=== PATIENT | male | born 1945 | race Two or more races ===

== ENCOUNTER 2017-03-11 06:38 | Inpatient (IN) | payer MEDICARE, BC ==
[~2017-03-11] VITALS: Ht 167.6 cm; Wt 65.8 kg
[2017-03-11] MEDS ORDERED: fentaNYL PF VIAL 100 MCG/2 ML VIAL IV PRN ×2 (07:15→08:45)
--- NOTE | 2017-03-11 07:15 | ED.ADGEN ---
Adult General Chief Complaint Chief Complaint: PAIN ON URINATION HPI HPI Patient is a 71 year old man, with a history of type 2 diabetes mellitus, hypertension, hyperlipidemia, CAD status post CABG, who presents to the emergency department with a complaint of back pain, abdominal pain, fever, difficulty with urination and hematuria along with discharge and drainage over the past 3 days. Patient states that he first noted pain with urination and difficulty with urination about 3 days ago, has been experiencing increasing pain, with some nausea, but no vomiting since that time. Denies any similar symptoms previously. Denies any previous infections. No injuries, states he recently had a "long car ride". No swelling extremities, no rashes, no upper respiratory symptoms, no diarrhea, no chest pain or shortness of breath. No injuries. He states he did take Tylenol at home yesterday. States that he had a "fever" yesterday, states that he felt hot and cold but did not check it with a thermometer. Review of Systems Review of Systems Constitutional: Denies fever or chills. [] Eyes: Denies change in visual acuity. [] HENT: Denies nasal congestion or sore throat. [] Respiratory: Denies cough or shortness of breath. [] Cardiovascular: Denies chest pain or edema. [] GI: Lower quadrant abdominal pain, also back soreness, nausea, no vomiting, no bloody stools or diarrhea. : Experiencing dysuria, hematuria, frequency, urgency and difficulty passing urine. Musculoskeletal: Denies back pain or joint pain. [] Integument: Denies rash. [] Neurologic: Denies headache, focal weakness or sensory changes. [] Endocrine: Denies polyuria or polydipsia. [] Lymphatic: Denies swollen glands. [] Psychiatric: Denies depression or anxiety. [] Current Medications Current Medications Current Medications Medications (Trade) Dose Ordered Sig/Patty Start Time Stop Time Status Last Admin Dose Admin Fentanyl Citrate (Fentanyl 2ml Vial) 25 mcg PRN Q15MIN PRN 03/11/17 07:15 03/11/17 18:00 03/11/17 07:21 25 MCG Ondansetron HCl (Zofran) 4 mg 1X ONCE 03/11/17 07:30 03/11/17 07:31 DC 03/11/17 07:20 4 MG Sodium Chloride 1,000 ml @ 1,000 mls/hr Q1H 03/11/17 07:30 03/11/17 08:29 DC 03/11/17 07:21 1,000 MLS/HR Allergies Allergies Allergies Coded Allergies Type Severity Reaction Last Updated Verified No Known Drug Allergies 03/11/17 No Physical Exam Physical Exam Constitutional: Well developed, well nourished, no acute distress, non-toxic appearance. [] HENT: Normocephalic, atraumatic, bilateral external ears normal, oropharynx moist, no oral exudates, nose normal. [] Eyes: PERRLA, EOMI, conjunctiva normal, no discharge. [] Neck: Normal range of motion, no tenderness, supple, no stridor. [] Cardiovascular:Heart rate regular rhythm, no murmur , S1, S2, no rubs or gallops. [] Lungs & Thorax: Bilateral breath sounds clear to auscultation no wheezing, rhonchi, rales. Physical crepitus or tenderness. [] Abdomen: Bowel sounds normal, soft, tenderness to palpation in the suprapubic region and lower quadrants, no rebound, no rigidity, no guarding, no masses, no pulsatile masses. [] Skin: Warm, dry, no erythema, no rash. [] Back: No tenderness, no CVA tenderness. [] Extremities: No tenderness, no cyanosis, no clubbing, ROM intact, no edema. [] Neurologic: Alert and oriented X 3, normal motor function, normal sensory function, no focal deficits noted. [] Psychologic: Affect normal, judgement normal, mood normal. [] Current Patient Data Vital Signs Vital Signs Date Time Temp Pulse Resp B/P (MAP) Pulse Ox O2 Delivery O2 Flow Rate FiO2 03/11/17 08:16 99.4 88 18 138/75 (96) 94 Room Air 99.4 Lab Values Laboratory Tests Test 03/11/17 07:20 03/11/17 07:30 White Blood Count 7.3 x10^3/uL (4.0-11.0) Red Blood Count 4.25 x10^6/uL (4.30-5.70) L Hemoglobin 12.0 g/dL (13.0-17.5) L Hematocrit 36.1 % (39.0-53.0) L Mean Corpuscular Volume 85 fL (79-100) Mean Corpuscular Hemoglobin 28 pg (25-35) Mean Corpuscular Hemoglobin Concent 33 g/dL (31-37) Red Cell Distribution Width 15.8 % (11.5-14.5) H Platelet Count 208 x10^3/uL (140-400) Neutrophils (%) (Auto) 83 % (31-73) H Lymphocytes (%) (Auto) 7 % (24-48) L Monocytes (%) (Auto) 9 % (0-9) Eosinophils (%) (Auto) 0 % (0-3) Basophils (%) (Auto) 0 % (0-3) Neutrophils # (Auto) 6.0 x10^3uL (1.8-7.7) Lymphocytes # (Auto) 0.5 x10^3/uL (1.0-4.8) L Monocytes # (Auto) 0.7 x10^3/uL (0.0-1.1) Eosinophils # (Auto) 0.0 x10^3/uL (0.0-0.7) Basophils # (Auto) 0.0 x10^3/uL (0.0-0.2) Sodium Level 135 mmol/L (136-145) L Potassium Level 3.4 mmol/L (3.5-5.1) L Chloride Level 98 mmol/L (98-107) Carbon Dioxide Level 26 mmol/L (21-32) Anion Gap 11 (6-14) Blood Urea Nitrogen 18 mg/dL (8-26) Creatinine 1.2 mg/dL (0.7-1.3) Estimated GFR (Cockcroft-Gault) 59.3 BUN/Creatinine Ratio 15 (6-20) Glucose Level 129 mg/dL (70-99) H Calcium Level 9.0 mg/dL (8.5-10.1) Total Bilirubin 0.6 mg/dL (0.2-1.0) Aspartate Amino Transferase (AST) 14 U/L (15-37) L Alanine Aminotransferase (ALT) 18 U/L (16-63) Alkaline Phosphatase 91 U/L (46-116) Total Protein 7.7 g/dL (6.4-8.2) Albumin 3.1 g/dL (3.4-5.0) L Albumin/Globulin Ratio 0.7 (1.0-1.7) L Urine Collection Type Unknown Urine Color Yellow Urine Clarity Turbid Urine pH 6.0 Urine Specific [place] 1.025 Urine Protein 100 mg/dL (NEG-TRACE) Urine Glucose (UA) Negative mg/dL (NEG) Urine Ketones (Stick) 40 mg/dL (NEG) Urine Blood Large (NEG) Urine Nitrite Positive (NEG) Urine Bilirubin Small (NEG) Urine Urobilinogen Dipstick 1.0 mg/dL (0.2 mg/dL) Urine Leukocyte Esterase Large (NEG) Urine RBC Fobs /HPF (0-2) Urine WBC Tntc /HPF (0-4) Urine Bacteria Many /HPF (0-FEW) Urine Mucus Marked /LPF Laboratory Tests 03/11/17 07:20 Laboratory Tests 03/11/17 07:20 EKG EKG ECG: Rhythm strip: Sinus rhythm, heart rate 88 beats minute, no ectopy. As interpreted by me. [] Radiology/Procedures Radiology/Procedures [][facility] [address] [place] [address] IMAGING REPORT Signed PATIENT: PAULA GUARDADO ACCOUNT: [id number] : 1945 LOCATION: ER AGE: 71 SEX: M EXAM STATUS: REG ER ORD. PHYSICIAN: PARVEEN LOPEZ DO REASON: flank/abd pain/hematuria PROCEDURE: CT ABDOMEN PELVIS WO CONTRAST CT abdomen and pelvis without contrast History: Generalized of flank and abdominal pain. Hematuria for 2 days. Comparison: None. Technique: Helical CT of the abdomen and pelvis was performed without intravenous or oral contrast. Axial, sagittal, and coronal reconstructions were obtained. One or more of the following individualized dose reduction techniques were utilized for the study: Automated exposure control Adjustment of mA and/or kV according to patient's size Use of iterative reconstruction technique. Findings: Evaluation of the solid organs is limited by lack of intravenous contrast. Evaluation of enteric structures may be limited by lack of oral contrast. Liver, spleen, pancreas, and bilateral adrenal glands are unremarkable. Gallbladder is distended, but otherwise unremarkable. There is no evidence of bowel obstruction. No free air or free fluid is identified in the abdomen or pelvis. Appendix is not confidently identified. No urinary stone or obstruction is seen. Prostate is enlarged. Urinary bladder demonstrates left-sided diverticulum. There is wall thickening of the urinary bladder up to 9 mm in thickness. Impression: 1. There is urinary bladder wall thickening. This could represent changes of chronic bladder outlet obstruction given enlargement of the prostate. Cystitis would be additional possibility. Recommend clinical correlation. 2. No evidence of urinary stone or obstruction. DICTATED and SIGNED BY: VINAY COSTA MD DATE: 03/11/17 0755 CC: PARVEEN LOPEZ DO; VINAY MARAVILLA MD ~ Course & Med Decision Making Course & Med Decision Making Pertinent Labs and Imaging studies reviewed. (See chart for details) Due to pain, and difficulty with urination with fever, CT of abdomen and pelvis ordered along laboratory studies and urinalysis. CT scan revealed evidence of thickening of the bladder wall, which was significant, concern for possible outlet obstruction. Urinalysis is positive for too numerous to count WBCs, some RBCs, many bacteria and nitrates. Laboratory studies do not reveal evidence of leukocytosis or left shift, electrolytes reveal a slightly low sodium and potassium, at 135 and 3.4 respectively, otherwise not concerning. Normal renal function. I did discuss findings with patient, he remains uncomfortable, continues to have difficulty with voiding. Due to patient's age, symptoms, comorbidities, fever, and difficulties with urination, he is agreeable for admission to the hospital for IV antibiotics and continued monitoring. Patient initiated on ceftriaxone in the ED without issue. Findings discussed with Dr. Nuñez, on-call the patient's primary care provider, patient accepted to do his primary care provider on his behalf as a full admission to the medical surgical floor, as patient's vital signs remained stable in the emergency department, consultation placed for Dr. Ledbetter of urology. Edition bridge orders entered per discussion. Patient remains stable and comfortable during his ED course, transported to the floor without issue. Dragon Disclaimer Dragon Disclaimer This electronic medical record was generated, in whole or in part, using a voice recognition dictation system. Departure Impression: Primary Impression: Pyelonephritis Disposition: ADMITTED INPATIENT Admitting Physician: Vinay Maravilla Condition: IMPROVED PARVEEN LOPEZ DO Mar 11, 2017 07:15
[2017-03-11] MEDS ORDERED: IV NORMAL SALINE 1000ML BAG 1,000 ML IV SCH (07:30)
[2017-03-11] MEDS ORDERED: ONDANSETRON PF 4 MG/2 ML VIAL. IV ONE (07:30)
[2017-03-11 07:33] LABS: BASO % 0 % (0-3); EOS % 0 % (0-3); HEMATOCRIT 36.1 % (39.0-53.0); LYMPH # 0.5 x10^3/uL (1.0-4.8); LYMPH % 7 % (24-48); MEAN CORPUSCULAR HEMOGLOBIN 28 pg (25-35); MEAN CORPUSCULAR HGB CONC 33 g/dL (31-37); MEAN CORPUSCULAR VOLUME 85 fL (79-100); MONO % 9 % (0-9); NEUT % 83 % (31-73); PLATELET COUNT 208 x10^3/uL (140-400); RED BLOOD COUNT 4.25 x10^6/uL (4.30-5.70); RED CELL DISTRIBUTION WIDTH 15.8 % (11.5-14.5); WHITE BLOOD COUNT 7.3 x10^3/uL (4.0-11.0)
[2017-03-11 07:42] LABS: CREATININE 1.2 mg/dL (0.7-1.3); GFR 59.3; POTASSIUM 3.4 mmol/L (3.5-5.1)
[2017-03-11 07:43] LABS: BILIRUBIN,URINE SMALL (NEG); GLUCOSE,URINE NEGATIVE (NEG); NITRITE,URINE POSITIVE (NEG); PROTEIN,URINE 100 mg/dL (NEG-TRACE)
[2017-03-11 07:48] LABS: ALBUMIN 3.1 g/dL (3.4-5.0); ALBUMIN/GLOBULIN RATIO 0.7 (1.0-1.7); TOTAL BILIRUBIN 0.6 mg/dL (0.2-1.0); TOTAL PROTEIN 7.7 g/dL (6.4-8.2)
[2017-03-11 07:53] LABS: BACTERIA,URINE MANY /HPF (0-FEW); RBC,URINE FOBS /HPF (0-2); WBC,URINE TNTC /HPF (0-4)
--- NOTE | 2017-03-11 08:02 | RAD ---
CT abdomen and pelvis without contrast History: Generalized of flank and abdominal pain. Hematuria for 2 days. Comparison: None. Technique: Helical CT of the abdomen and pelvis was performed without intravenous or oral contrast. Axial, sagittal, and coronal reconstructions were obtained. One or more of the following individualized dose reduction techniques were utilized for the study: Automated exposure control Adjustment of mA and/or kV according to patient's size Use of iterative reconstruction technique. Findings: Evaluation of the solid organs is limited by lack of intravenous contrast. Evaluation of enteric structures may be limited by lack of oral contrast. Liver, spleen, pancreas, and bilateral adrenal glands are unremarkable. Gallbladder is distended, but otherwise unremarkable. There is no evidence of bowel obstruction. No free air or free fluid is identified in the abdomen or pelvis. Appendix is not confidently identified. No urinary stone or obstruction is seen. Prostate is enlarged. Urinary bladder demonstrates left-sided diverticulum. There is wall thickening of the urinary bladder up to 9 mm in thickness. Impression: 1. There is urinary bladder wall thickening. This could represent changes of chronic bladder outlet obstruction given enlargement of the prostate. Cystitis would be additional possibility. Recommend clinical correlation. 2. No evidence of urinary stone or obstruction.
[2017-03-11] MEDS ORDERED: ONDANSETRON PF 4 MG/2 ML VIAL. IV PRN (08:45)
[2017-03-11] MEDS ORDERED: DEXTROSE 50% 25 GM / 50ML DISP.SYRIN. IV PRN (08:45)
--- NOTE | 2017-03-11 08:50 | ACF ---
Admission Forms Criteria PYELONEPHRITIS, ACUTE Clinical Indications for Admission to Inpatient Care (Place 'X' for any and all applicable criteria): Admission is indicated for ANY ONE of the following 1,2,3,4,5 [ ]I. Outpatient treatment has failed or is not feasible (eg, multidrug- resistant organism).5 [ ]II. beyond 24 weeks' gestation6 [ ]III. Hemodynamic instability [ ]IV. Immunocompromised state (eg, AIDS, diabetes, sickle cell disease) [ ]V. Known renal or urologic abnormalities (eg, indwelling catheter, structural abnormalities, renal calculi, urinary stent, previous urologic surgery) [ ]. Condition that requires drainage procedure, including ANY ONE of the following: [ ]a) Urinary obstruction [ ]b) Pyelitis [ ]c) Pyonephrosis [ ]d) Renal or perinephric abscess [ ]e) Emphysematous pyelonephritis 7 [X]VII. Inpatient admission required rather than observation care (Also use Pyelonephritis, Acute: Observation Care Criteria as appropriate) because of ANY ONE of the following: [ ]a) High fever or infection requiring inpatient admission as indicated by ANY ONE of [id number] [ ]A. Documented bacteremia [ ]B. Temp>104.9 [id number] (oral) [ ]C. Temp>103.10F (oral) or <96.80F (rectal) that does not respond to all emergency treatment [ ]b) Acute renal failure [ ]c) Other significant finding or clinical condition judged not to be within the scope of observation care [ ]d) IV fluid to replace significant ongoing (eg, for over 24hrs) losses (> 3 L/m2 per day) [X]e) Other condition,treatment or monitoring requiring inpatient admission The original [facility] content created by [employer] has been revised. The portions of the content which have been revised are identified through the use of italic text or in bold, and [facility] [employer] has neither reviewed nor approved the modified material. All other unmodified content is copyright [employer]. Please see references footnoted in the original [facility] edition 2016 Admission Criteria Met?: Yes VAMSI DAVID Mar 11, 2017 08:50
[2017-03-11] MEDS: IV NORMAL SALINE 1000ML BAG 1,000 ML IV SCH ×2 (09:00→20:51)
[2017-03-11] MEDS ORDERED: ACETAMINOPHEN 500 MG TABLET PO ONE (09:00)
[2017-03-11 10:30] VITALS: BP 115/58
[2017-03-11] MEDS: INSULIN ASPART 300 UNITS/3 ML INSULN.PEN SQ SCH ×2 (11:53→17:00)
--- NOTE | 2017-03-11 12:44 | PDOC ---
Provider Note Provider Note H&P dictated. Diabetic pt with BPH has cystitis with bladder wall thickening but imaging does not confirm pyelonephritis and WBC is normal but he is having trouble with retention from his BPH so at high risk for E.coli Sepsis and admitted for IV antibiotics, glycemic control and urology consult. His last A1C 06/25 was 10.1. He has been having nocturia x 3. He had meds adjusted last fall and got a new meter and states sugars better since then but he missed his 3 mo f/u and has not been to the office since 06/25 CHRISTOS GREEN MD Mar 11, 2017 12:44
[2017-03-11] MEDS ORDERED: FOLI1TAB16 PO (13:10)
[2017-03-11] MEDS ORDERED: GLIM4TAB2 PO (13:10)
[2017-03-11] MEDS ORDERED: SIMV20TA3 PO (13:10)
[2017-03-11] MEDS ORDERED: OMEG1CAP6 PO (13:10)
[2017-03-11] MEDS ORDERED: TAMS0.4C2 PO (13:10)
[2017-03-11] MEDS ORDERED: METF-620 PO (13:10)
[2017-03-11] MEDS ORDERED: PIOG15TA21 PO (13:10)
[2017-03-11] MEDS ORDERED: LISI10TA2 PO (13:10)
--- NOTE | 2017-03-11 14:40 | EKG ---
[facility] [address] [place] [address] Test Date: 2017-03-11 Test Time: 14:02:30 Pat Name: PAULA GUARDADO Department: Room: 5 Gender: M Distribution Lineman: : 1945 Requested By: CHRISTOS GREEN Order Number: [id number] Reading MD: Jered Nguyễn Measurements Intervals [place] Rate: 67 P: 46 MI: 180 QRS: 42 QRSD: 78 T: 39 QT: 396 QTc: 421 Interpretive Statements SINUS RHYTHM NO SPECIFIC ECG ABNORMALITIES RI6.01 No previous ECG available for comparison Electronically Signed On 03-16-2017 9:31:58 CDT by Jered Nguyễn
[2017-03-11 15:00] VITALS: BP 115/56
[2017-03-11] MEDS: PIOGLITAZONE 15 MG TABLET. PO SCH (15:00)
[2017-03-11] MEDS: TAMSULOSIN 0.4 MG CAP.ER.24H. PO SCH (15:29)
[2017-03-11] MEDS: FOLIC ACID 1 MG TABLET. PO SCH (15:29)
[2017-03-11] MEDS: OMEGA-3 FATTY ACIDS/FISH OIL 1,000 MG CAPSULE. PO SCH (15:29)
[2017-03-11] MEDS: LISINOPRIL 10 MG TABLET PO SCH (15:29)
[2017-03-11] MEDS: GLIMEPIRIDE 2 MG TABLET. PO SCH (18:19)
[2017-03-11] MEDS: ACETAMINOPHEN 325 MG TABLET. PO PRN (18:24)
[2017-03-11 19:00] VITALS: BP 124/60
--- NOTE | 2017-03-11 20:44 | HP ---
ADMIT DATE: 03/11/2017 ADMISSION DIAGNOSIS: Escherichia coli sepsis. HISTORY OF PRESENT ILLNESS: A 71-year-old white male with type 2 diabetes, not well controlled in the past who has a history of coronary artery disease and has had a prior CABG, presented to the Emergency Room with back pain, abdominal pain, fever, and difficulty urinating. He was found to have a urinalysis consistent with infection. His white count was normal. His imaging studies revealed thickening of bladder wall, and because of his retention issues he was admitted. He is known to have BPH and is on medication for that. He states he has been compliant with his medications, although his last A1c was in June and was 10.1. His medications were adjusted then, and he was given a glucose monitor, and he states his control has been better since then. PAST MEDICAL HISTORY: Positive for hypertension, type 2 diabetes, erectile dysfunction, coronary artery disease, and chronic back pain. PAST SURGICAL HISTORY: Include CABG, back surgery x2, and appendectomy. FAMILY HISTORY: Mother is and had diabetes. Father is . He had gallbladder disease. Brother is . SOCIAL HISTORY: He quit smoking over 30 years ago. He occasionally uses alcohol. He is . He lives with his , daughter, and three grandsons. ALLERGIES: HE HAS ALLERGY TO FLONASE. HOME MEDICATIONS: Include lisinopril 10 mg daily, metoprolol 25 daily, metformin 1000 b.i.d., glimepiride 4 mg b.i.d., simvastatin 1 daily, aspirin 325 daily, Toujeo 10 units each evening, folic acid 1 mg daily, tamsulosin 0.4 mg daily, fish oil 1000 mg daily, and Cialis 10 mg daily. He has had no prior hospitalization history. VACCINE STATUS: Unknown. REVIEW OF SYSTEMS: He denies any weight loss. HEENT: Negative for changes in smell, taste, or hearing. He does not have any problem swallowing. RESPIRATORY: Negative for shortness of breath or dyspnea on exertion. CARDIOVASCULAR: Denies any chest pain or palpitations. ABDOMEN: He apparently had some abdominal pain. He mentioned to the ER doctor. It seems to be related to his bladder symptoms. He has not had any epigastric pain or emesis. He has not had any diarrhea. : As above, he has also had foreskin balanitis in the past with yeast. BACK: He has had some acute back discomfort. JOINTS: No swelling or significant pain. SKIN: No rashes. NEUROLOGIC: No headaches or seizures. PSYCHIATRIC: No depression or insomnia. PHYSICAL EXAMINATION: GENERAL: He is alert and oriented. He is having trouble urinating, and his sheets are wet. He just tried to urinate and got about 120 mL out with some hesitancy and difficulty. HEENT: Unremarkable. Hearing is intact. No congestion. Sclerae are nonicteric. Mucous membranes are moist. NECK: Supple. HEART: Regular rate and rhythm. LUNGS: Clear to auscultation. ABDOMEN: Otherwise, nondistended, nontender. There is no flank pain on palpation. EXTREMITIES: Without clubbing, cyanosis, or edema. NEUROLOGIC: He is alert and oriented. VITAL SIGNS: Show he has been afebrile since admission, temperature was 100.0 in the ER, blood pressure was quite high in the ER 187/77, but has come down to normal ranges. His respiratory rate and heart rates are normal. He is on room air oxygen. LABORATORY DATA: Show white count of 7.3, hemoglobin 12, hematocrit 36.1, and platelets of 208. Chemistries: His potassium is low at 3.4, sodium 135, glucose 129. Cardiac enzymes are normal. Albumin is low at 3.1. Urinalysis: Too numerous to count white cells, many bacteria, large leukocyte esterase, positive nitrite, 40 ketones, large amount of blood, and it is yellow and turbid with a specific gravity of 1.020. IMAGING: Abdominal pelvis CT without contrast shows thickening of the bladder wall suggestive of chronic bladder outlet obstruction because of the prostate also enlarged with cystitis is also considered likely. No evidence of stone or obstruction. There is a left-sided bladder diverticulum. The gallbladder is distended, but otherwise unremarkable. Appendix is not definitely seen. ASSESSMENT: 1. Most likely, this represents early Escherichia coli sepsis in a patient with urinary retention from benign prostatic hypertrophy. 2. Type 2 diabetes, on insulin, currently appears to be controlled. 3. Coronary artery disease, status post coronary artery bypass graft without any chest pain. 4. History of hyperlipidemia. 5. History of erectile dysfunction. 6. Hypertension. PLAN: He is admitted. He is on IV ceftriaxone which will be continued. Urine culture is pending. Urology is requested for consultation as his BPH likely needs to be addressed once his infection clears. He has mild hypokalemia that will be monitored, mild hyponatremia that will be monitored. His white count will be monitored. It is normal at admission, but he did have a low-grade temperature, and home medications will be continued. W Sreekanth GREEN MD DR: BRET/sabrina JOB#: [id number] / [id number]
[2017-03-11] MEDS: SIMVASTATIN 20 MG TABLET PO SCH (20:51)
[2017-03-11] MEDS: INSULIN DETEMIR 300 UNITS/3 ML INSULN.PEN. SQ SCH (21:59)
[2017-03-11 23:00] VITALS: BP 118/56
[2017-03-12] MEDS: ACETAMINOPHEN 325 MG TABLET. PO PRN ×2 (02:25→20:40)
[2017-03-12 03:00] VITALS: BP 130/64
[2017-03-12 04:18] LABS: BASO % 1 % (0-3); EOS % 2 % (0-3); HEMATOCRIT 31.8 % (39.0-53.0); HEMOGLOBIN 10.6 g/dL (13.0-17.5); LYMPH # 0.6 x10^3/uL (1.0-4.8); LYMPH % 12 % (24-48); MEAN CORPUSCULAR HEMOGLOBIN 28 pg (25-35); MEAN CORPUSCULAR HGB CONC 33 g/dL (31-37); MEAN CORPUSCULAR VOLUME 85 fL (79-100); MONO % 12 % (0-9); NEUT % 73 % (31-73); PLATELET COUNT 211 x10^3/uL (140-400); RED BLOOD COUNT 3.75 x10^6/uL (4.30-5.70); RED CELL DISTRIBUTION WIDTH 15.3 % (11.5-14.5); WHITE BLOOD COUNT 4.9 x10^3/uL (4.0-11.0)
[2017-03-12] MEDS: IV NORMAL SALINE 1000ML BAG 1,000 ML IV SCH (04:26)
[2017-03-12 04:37] LABS: CALCIUM 8.2 mg/dL (8.5-10.1); GFR 73.2; POTASSIUM 3.1 mmol/L (3.5-5.1)
[2017-03-12 07:40] VITALS: BP 99/53
[2017-03-12] MEDS ORDERED: DEXTROSE ORAL GEL 15 GM TUBE. ONE (07:54)
[2017-03-12] MEDS: GLIMEPIRIDE 2 MG TABLET. PO SCH ×2 (08:00→17:22)
[2017-03-12] MEDS: INSULIN ASPART 300 UNITS/3 ML INSULN.PEN SQ SCH ×3 (08:00→17:00)
[2017-03-12] MEDS: LISINOPRIL 10 MG TABLET PO SCH (09:00)
[2017-03-12] MEDS: PIOGLITAZONE 15 MG TABLET. PO SCH (09:00)
[2017-03-12] MEDS: FOLIC ACID 1 MG TABLET. PO SCH (09:00)
[2017-03-12] MEDS: TAMSULOSIN 0.4 MG CAP.ER.24H. PO SCH (09:00)
[2017-03-12] MEDS: OMEGA-3 FATTY ACIDS/FISH OIL 1,000 MG CAPSULE. PO SCH (09:00)
[2017-03-12 11:09] VITALS: BP 150/59
[2017-03-12] MEDS ORDERED: POLYETHYLENE GLYCOL 3350 17 GM PACKET. PO PRN (12:15)
--- NOTE | 2017-03-12 12:24 | PDOC ---
PROGRESS NOTES Subjective Subjective He soaked the sheets last night but urine culture is still pending, he is tolerating the IV antibiotics but is still not emptying his bladder very well. He was also hypoglycemic overnight and has a low K+ this am but his A1c was 7.4 which is a dramatic improvement from 10.1 his last office visit. Objective Objective Vital Signs Date Time Temp Pulse Resp B/P (MAP) Pulse Ox O2 Delivery O2 Flow Rate FiO2 03/12/17 11:09 100.2 81 18 150/59 (89) 97 Room Air 100.2 Intake and Output 03/12/17 07:00 Intake Total 2690 ml Output Total 650 ml Balance 2040 ml Intake Oral 640 ml IV Total 2050 ml Output Urine Total 650 ml # Voids 3 Physical Exam Abdomen: Normal bowel sounds, Soft Heart: Regular rate Extremities: No clubbing, No cyanosis, No edema General: Alert, Oriented X3, Cooperative HEENT: Atraumatic Lungs: Clear to auscultation MUSCULOSKELETAL: No joint tenderness Neck: Supple Neuro: Normal speech Psych/Mental Status: Mental status NL Skin: No breakdown Assessment Assessment Problems Medical Problems: (1)urinary retention from BPH with likely E.coli sepsis, awaiting culture results type 2 diabetes with overnight hypoglycemia hypokalemia Status: Acute Plan Plan of Care continue IV ceftriaxone , await cultures, may need TURP eventually, will decrease diabetic meds to avoid hypoglycemia, treat constipation Comment Review of Relevant I have reviewed the following items loy (where applicable) has been applied. Labs Laboratory Tests Test 03/11/17 07:20 03/11/17 07:30 03/11/17 11:37 03/11/17 16:58 White Blood Count 7.3 x10^3/uL (4.0-11.0) Red Blood Count 4.25 x10^6/uL (4.30-5.70) Hemoglobin 12.0 g/dL (13.0-17.5) Hematocrit 36.1 % (39.0-53.0) Mean Corpuscular Volume 85 fL (79-100) Mean Corpuscular Hemoglobin 28 pg (25-35) Mean Corpuscular Hemoglobin Concent 33 g/dL (31-37) Red Cell Distribution Width 15.8 % (11.5-14.5) Platelet Count 208 x10^3/uL (140-400) Neutrophils (%) (Auto) 83 % (31-73) Lymphocytes (%) (Auto) 7 % (24-48) Monocytes (%) (Auto) 9 % (0-9) Eosinophils (%) (Auto) 0 % (0-3) Basophils (%) (Auto) 0 % (0-3) Neutrophils # (Auto) 6.0 x10^3uL (1.8-7.7) Lymphocytes # (Auto) 0.5 x10^3/uL (1.0-4.8) Monocytes # (Auto) 0.7 x10^3/uL (0.0-1.1) Eosinophils # (Auto) 0.0 x10^3/uL (0.0-0.7) Basophils # (Auto) 0.0 x10^3/uL (0.0-0.2) Sodium Level 135 mmol/L (136-145) Potassium Level 3.4 mmol/L (3.5-5.1) Chloride Level 98 mmol/L (98-107) Carbon Dioxide Level 26 mmol/L (21-32) Anion Gap 11 (6-14) Blood Urea Nitrogen 18 mg/dL (8-26) Creatinine 1.2 mg/dL (0.7-1.3) Estimated GFR (Cockcroft-Gault) 59.3 BUN/Creatinine Ratio 15 (6-20) Glucose Level 129 mg/dL (70-99) Hemoglobin A1c 7.4 % (4.8-5.6) Calcium Level 9.0 mg/dL (8.5-10.1) Total Bilirubin 0.6 mg/dL (0.2-1.0) Aspartate Amino Transf (AST/SGOT) 14 U/L (15-37) Alanine Aminotransferase (ALT/SGPT) 18 U/L (16-63) Alkaline Phosphatase 91 U/L (46-116) Troponin I Quantitative < 0.017 ng/mL (0.000-0.055) Total Protein 7.7 g/dL (6.4-8.2) Albumin 3.1 g/dL (3.4-5.0) Albumin/Globulin Ratio 0.7 (1.0-1.7) Urine Collection Type Unknown Urine Color Yellow Urine Clarity Turbid Urine pH 6.0 Urine Specific [place] 1.025 Urine Protein 100 mg/dL (NEG-TRACE) Urine Glucose (UA) Negative mg/dL (NEG) Urine Ketones (Stick) 40 mg/dL (NEG) Urine Blood Large (NEG) Urine Nitrite Positive (NEG) Urine Bilirubin Small (NEG) Urine Urobilinogen Dipstick 1.0 mg/dL (0.2 mg/dL) Urine Leukocyte Esterase Large (NEG) Urine RBC Fobs /HPF (0-2) Urine WBC Tntc /HPF (0-4) Urine Bacteria Many /HPF (0-FEW) Urine Mucus Marked /LPF Glucose (Fingerstick) 92 mg/dL (70-99) 122 mg/dL (70-99) Test 03/11/17 20:59 03/12/17 03:31 03/12/17 07:45 03/12/17 09:18 Glucose (Fingerstick) 187 mg/dL (70-99) 51 mg/dL (70-99) 124 mg/dL (70-99) White Blood Count 4.9 x10^3/uL (4.0-11.0) Red Blood Count 3.75 x10^6/uL (4.30-5.70) Hemoglobin 10.6 g/dL (13.0-17.5) Hematocrit 31.8 % (39.0-53.0) Mean Corpuscular Volume 85 fL (79-100) Mean Corpuscular Hemoglobin 28 pg (25-35) Mean Corpuscular Hemoglobin Concent 33 g/dL (31-37) Red Cell Distribution Width 15.3 % (11.5-14.5) Platelet Count 211 x10^3/uL (140-400) Neutrophils (%) (Auto) 73 % (31-73) Lymphocytes (%) (Auto) 12 % (24-48) Monocytes (%) (Auto) 12 % (0-9) Eosinophils (%) (Auto) 2 % (0-3) Basophils (%) (Auto) 1 % (0-3) Neutrophils # (Auto) 3.6 x10^3uL (1.8-7.7) Lymphocytes # (Auto) 0.6 x10^3/uL (1.0-4.8) Monocytes # (Auto) 0.6 x10^3/uL (0.0-1.1) Eosinophils # (Auto) 0.1 x10^3/uL (0.0-0.7) Basophils # (Auto) 0.0 x10^3/uL (0.0-0.2) Sodium Level 143 mmol/L (136-145) Potassium Level 3.1 mmol/L (3.5-5.1) Chloride Level 107 mmol/L (98-107) Carbon Dioxide Level 27 mmol/L (21-32) Anion Gap 9 (6-14) Blood Urea Nitrogen 16 mg/dL (8-26) Creatinine 1.0 mg/dL (0.7-1.3) Estimated GFR (Cockcroft-Gault) 73.2 Glucose Level 81 mg/dL (70-99) Calcium Level 8.2 mg/dL (8.5-10.1) Laboratory Tests Test 03/11/17 16:58 03/11/17 20:59 03/12/17 03:31 03/12/17 07:45 Glucose (Fingerstick) 122 mg/dL (70-99) 187 mg/dL (70-99) 51 mg/dL (70-99) White Blood Count 4.9 x10^3/uL (4.0-11.0) Red Blood Count 3.75 x10^6/uL (4.30-5.70) Hemoglobin 10.6 g/dL (13.0-17.5) Hematocrit 31.8 % (39.0-53.0) Mean Corpuscular Volume 85 fL (79-100) Mean Corpuscular Hemoglobin 28 pg (25-35) Mean Corpuscular Hemoglobin Concent 33 g/dL (31-37) Red Cell Distribution Width 15.3 % (11.5-14.5) Platelet Count 211 x10^3/uL (140-400) Neutrophils (%) (Auto) 73 % (31-73) Lymphocytes (%) (Auto) 12 % (24-48) Monocytes (%) (Auto) 12 % (0-9) Eosinophils (%) (Auto) 2 % (0-3) Basophils (%) (Auto) 1 % (0-3) Neutrophils # (Auto) 3.6 x10^3uL (1.8-7.7) Lymphocytes # (Auto) 0.6 x10^3/uL (1.0-4.8) Monocytes # (Auto) 0.6 x10^3/uL (0.0-1.1) Eosinophils # (Auto) 0.1 x10^3/uL (0.0-0.7) Basophils # (Auto) 0.0 x10^3/uL (0.0-0.2) Sodium Level 143 mmol/L (136-145) Potassium Level 3.1 mmol/L (3.5-5.1) Chloride Level 107 mmol/L (98-107) Carbon Dioxide Level 27 mmol/L (21-32) Anion Gap 9 (6-14) Blood Urea Nitrogen 16 mg/dL (8-26) Creatinine 1.0 mg/dL (0.7-1.3) Estimated GFR (Cockcroft-Gault) 73.2 Glucose Level 81 mg/dL (70-99) Calcium Level 8.2 mg/dL (8.5-10.1) Test 03/12/17 09:18 Glucose (Fingerstick) 124 mg/dL (70-99) Medications Current Medications Fentanyl Citrate (Fentanyl 2ml Vial) 25 mcg PRN Q15MIN PRN IV PAIN GREATER THAN 3/10 Last administered on 03/11/17 07:21; Start 03/11/17 at 07:15; Stop 03/11 at 18:00; Status DC Sodium Chloride 1,000 ml @ 1,000 mls/hr Q1H IV Last administered on 03/11/17 07:21; Start 03/11/17 at 07:30; Stop 03/11/17 at 08:29; Status DC Ondansetron HCl (Zofran) 4 mg 1X ONCE IV Last administered on 03/11/17 07:20; Start 03/11/17 at 07:30; Stop 03/11/17 at 07:31; Status DC Ceftriaxone Sodium 50 ml @ 100 mls/hr 1X ONCE IV Last administered on 08:47; Start 03/11/17 at 08:30; Stop 03/11/17 at 08:59; Status DC Ceftriaxone Sodium 1 gm/ Sodium Chloride 50 ml @ 100 mls/hr Q24H IV Last administered on 03/12/17 09:33; Start 03/12/17 at 09:00 Ondansetron HCl (Zofran) 4 mg PRN Q8HRS PRN IV NAUSEA/VOMITING; Start 03/11/17 at 08:45; Stop 03/12/17 at 08:44; Status DC Sodium Chloride 1,000 ml @ 125 mls/hr Q8H IV Last administered on 03/12/17 04: 26; Start 03/11/17 at 09:00; Stop 03/12/17 at 08:59; Status DC Acetaminophen (Tylenol) 650 mg PRN Q4HRS PRN PO FEVER Last administered on 02:25; Start 03/11/17 at 08:45; Stop 03/12/17 at 08:44; Status DC Insulin Aspart (NovoLOG) 0-5 UNITS TIDWMEALS SQ ; Start 03/11/17 at 12:00 Dextrose (Dextrose 50%-Water Syringe) 12.5 gm PRN Q15MIN PRN IV SEE COMMENTS; Start 03/11/17 at 08:45 Fentanyl Citrate (Fentanyl 2ml Vial) 25 mcg PRN Q15MIN PRN IV PAIN GREATER THAN 3/10; Start 03/11/17 at 08:45; Stop 03/12/17 at 08:44; Status DC Acetaminophen (Tylenol) 1,000 mg 1X ONCE PO Last administered on 03/11/17 09: 01; Start 03/11/17 at 09:00; Stop 03/11/17 at 09:01; Status DC Ceftriaxone Sodium 1 gm/ Sodium Chloride 50 ml @ 100 mls/hr Q24H IV ; Start 03/11/17 at 13:00; Status UNV Insulin Detemir (Levemir) 10 units QHS SQ Last administered on 03/11/17 21:59; Start 03/11/17 at 21:00 Folic Acid (Folic Acid) 1 mg DAILY PO Last administered on 03/11/17 15:29; Start 03/11/17 at 15:00 Lisinopril (Prinivil) 10 mg DAILY PO Last administered on 03/11/17 15:29; Start 03/11/17 at 15:00 Metformin HCl (Glucophage) 1,000 mg BIDWMEALS PO Last administered on 03/11/17 18:19; Start 03/11/17 at 17:00 Fish Oil (Fish Oil) 1,000 mg DAILY PO Last administered on 03/11/17 15:29; Start 03/11/17 at 15:00 Pioglitazone HCl (Actos) 15 mg DAILY PO ; Start 03/11/17 at 15:00 Simvastatin (Zocor) 20 mg HS PO Last administered on 03/11/17 20:51; Start 03/11 at 21:00 Tamsulosin HCl (Flomax) 0.4 mg DAILY PO Last administered on 03/11/17 15:29; Start 03/11/17 at 15:00 Glimepiride (Amaryl) 4 mg BIDWMEALS PO Last administered on 03/11/17 18:19; Start 03/11/17 at 17:00 Glucose (Insta-Glucose) 15 gm STK-MED ONCE .ROUTE ; Start 03/12/17 at 07:54; Stop 03/12/17 at 07:55; Status DC Acetaminophen (Tylenol) 650 mg PRN Q6HRS PRN PO PAIN; Start 03/12/17 at 12:15 Polyethylene Glycol (miraLAX PACKET) 17 gm PRN DAILY PRN PO CONSTIPATION; Start 03/12/17 at 12:15 Active Scripts Active Reported Fish Oil 1,000 Mg Capsule ([place]-3 Fatty Acids/Fish Oil) 1 Each Capsule 1 Each PO Actos (Pioglitazone Hcl) 15 Mg Tablet 15 Mg PO DAILY Folic Acid 1 Mg Tablet 1 Tab PO DAILY Tamsulosin Hcl 0.4 Mg Cap.er.24h 0.4 Mg PO DAILY Simvastatin 20 Mg Tablet 20 Mg PO HS Lisinopril 10 Mg Tablet 10 Mg PO DAILY Glimepiride 4 Mg Tablet 1 Tab PO BID Metformin Hcl 1,000 Mg Tablet 1,000 Mg PO BIDWMEALS Vitals/I & O Vital Sign - Last 24 Hours 03/11/17 03/11/17 03/11/17 03/11/17 15:00 15:29 19:00 20:00 Temp 98.2 98.9 98.2 98.9 Pulse 70 94 84 Resp 18 16 B/P (MAP) 115/56 (75) 115/58 124/60 (81) Pulse Ox 96 93 O2 Delivery Room Air Room Air Room Air 03/11/17 03/12/17 03/12/17 03/12/17 23:00 03:00 07:40 08:00 Temp 98.4 99.5 98.3 98.4 99.5 98.3 Pulse 66 72 67 Resp 17 15 17 B/P (MAP) 118/56 (76) 130/64 (86) 99/53 (68) Pulse Ox 95 96 96 O2 Delivery Room Air Room Air Room Air Room Air 03/12/17 11:09 Temp 100.2 100.2 Pulse 81 Resp 18 B/P (MAP) 150/59 (89) Pulse Ox 97 O2 Delivery Room Air Intake and Output 03/11/17 03/11/17 03/12/17 15:00 23:00 07:00 Intake Total 1050 ml 640 ml 1000 ml Output Total 450 ml 200 ml Balance 1050 ml 190 ml 800 ml CHRISTOS GREEN MD Mar 12, 2017 12:24
[2017-03-12] MEDS ORDERED: ACETAMINOPHEN 325 MG TABLET. PO PRN (12:30)
[2017-03-12] MEDS ORDERED: POTASSIUM CHLORIDE 20 MEQ TABLET.ER. PO ONE (13:00)
[2017-03-12] MEDS: METOPROLOL SUCC 24HR ER 25 MG TAB.ER.24H. PO SCH (14:00)
[2017-03-12 15:32] VITALS: BP 135/53
[2017-03-12 19:00] VITALS: BP 124/64
[2017-03-12] MEDS: SIMVASTATIN 20 MG TABLET PO SCH (20:40)
[2017-03-12] MEDS: INSULIN DETEMIR 300 UNITS/3 ML INSULN.PEN. SQ SCH (20:40)
[2017-03-12 22:35] VITALS: BP 134/62
--- NOTE | 2017-03-13 01:17 | CONS ---
DATE OF CONSULTATION: 03/12/2017 CHIEF COMPLAINT: Urinary tract infection, BPH. HISTORY OF PRESENT ILLNESS: A 71-year-old male, admitted through the Emergency Room with back pain, lower abdominal pain, fever and difficulty urinating. The patient has a history of BPH. He is also a type 2 diabetic. The patient was admitted for IV hydration and IV antibiotic therapy. PAST MEDICAL HISTORY: Significant for hypertension, type 2 diabetes, coronary artery disease, chronic back pain and erectile dysfunction. PAST SURGICAL HISTORY: The patient has had coronary artery bypass graft surgery. He has had back surgery x 2 and a previous appendectomy. He has had no prostate surgery. SOCIAL HISTORY: The patient is , he quit smoking years ago. He occasionally uses alcohol. ALLERGIES: THE PATIENT STATES HE IS ALLERGIC TO FLONASE. MEDICATIONS: The medication list was reviewed. He is taking Flomax 1 tablet daily. REVIEW OF SYSTEMS: A 14-point review of systems performed, most significant is his HPI, history of BPH and difficulty voiding. The patient states that he gets up 3-4 times at night. He has a sensation of incomplete voiding and a slow stream. PHYSICAL EXAMINATION: GENERAL DESCRIPTION: A 71-year-old male. He is alert and oriented. He denies any acute pain or discomfort, but he does complain of myalgia. ABDOMEN: Soft, nontender. Negative for flank pain to palpation bilaterally. No palpable abdominal masses. He denies suprapubic tenderness. GENITALIA: Normal external genitalia. He does not have an indwelling Mercado catheter. RECTAL: Not performed at this time due to infection. EXTREMITIES: Negative for cyanosis or edema. LABORATORY STUDIES: His white blood cell count has been within normal limits at 7.3, his hemoglobin 12.0, hematocrit 36.1, platelets are adequate. The patient's electrolytes; potassium 3.1, his BUN is 16, creatinine 1.0, glucose has ranged between 187 and 51. Urinalysis on admission was gemma colored, large dipstick blood, positive nitrite, small bilirubin, large leukocytes, white blood cells were too numerous to count. He had many bacteria. Urine culture is pending at this time. X-RAY STUDIES: The patient underwent a CT scan of the abdomen and pelvis without contrast on admission. There was no hydronephrosis, no evidence of urinary calculi. He does demonstrate a bladder diverticulum on the left side of the bladder and also bladder wall thickening consistent with chronic bladder outlet obstruction. IMPRESSION: 1. Urinary tract infection. 2. Benign prostatic hyperplasia. 3. Incomplete voiding. SUGGESTIONS: 1. Agree with treating his ____ urinary tract infections aggressively. 2. Would obtain a postvoid bladder scan to measure his residual urine volume. 3. Once the patient's infection has been cleared and he is discharged home, he needs a followup appointment with Urology for flexible cystoscopy to evaluate the bladder outlet and most likely to plan for a TURP in the future. This was explained to the patient. He appears to understand and is agreeable. YONNY HENRY DO DR: JOHNATHON/sabrina JOB#: [id number] / [id number]
[2017-03-13] MEDS: ACETAMINOPHEN 325 MG TABLET. PO PRN ×2 (06:38→15:17)
[2017-03-13 07:12] VITALS: BP 109/51
[2017-03-13] MEDS: INSULIN ASPART 300 UNITS/3 ML INSULN.PEN SQ SCH ×3 (08:00→17:00)
[2017-03-13] MEDS: FOLIC ACID 1 MG TABLET. PO SCH (09:49)
[2017-03-13] MEDS: GLIMEPIRIDE 2 MG TABLET. PO SCH ×2 (09:49→17:09)
[2017-03-13] MEDS: METOPROLOL SUCC 24HR ER 25 MG TAB.ER.24H. PO SCH (09:50)
[2017-03-13] MEDS: OMEGA-3 FATTY ACIDS/FISH OIL 1,000 MG CAPSULE. PO SCH (09:50)
[2017-03-13] MEDS: POTASSIUM CHLORIDE 10 MEQ TABLET.ER. PO SCH (09:50)
[2017-03-13] MEDS: LISINOPRIL 10 MG TABLET PO SCH (09:50)
[2017-03-13] MEDS: TAMSULOSIN 0.4 MG CAP.ER.24H. PO SCH (09:51)
[2017-03-13 10:15] LABS: BASO % 1 % (0-3); EOS % 2 % (0-3); HEMATOCRIT 32.9 % (39.0-53.0); HEMOGLOBIN 11.1 g/dL (13.0-17.5); LYMPH # 0.9 x10^3/uL (1.0-4.8); LYMPH % 14 % (24-48); MEAN CORPUSCULAR HEMOGLOBIN 28 pg (25-35); MEAN CORPUSCULAR HGB CONC 34 g/dL (31-37); MEAN CORPUSCULAR VOLUME 83 fL (79-100); MONO % 13 % (0-9); NEUT % 71 % (31-73); PLATELET COUNT 244 x10^3/uL (140-400); RED BLOOD COUNT 3.94 x10^6/uL (4.30-5.70); RED CELL DISTRIBUTION WIDTH 15.6 % (11.5-14.5); WHITE BLOOD COUNT 6.2 x10^3/uL (4.0-11.0)
[2017-03-13 10:30] LABS: CALCIUM 8.9 mg/dL (8.5-10.1); GFR 73.2; POTASSIUM 3.5 mmol/L (3.5-5.1)
--- NOTE | 2017-03-13 11:10 | PDOC ---
PROGRESS NOTES Subjective Subjective He has now developed acute left testicle pain and swelling, was febrile overnight and had night sweats but was not hypoglycemic, blood cultures obtained , urine growing gram negative rods as expected but final still pending, A1C was 7.4. He is still not emptying well when he urinates but has not yet been bladder scanned Objective Objective Vital Signs Date Time Temp Pulse Resp B/P (MAP) Pulse Ox O2 Delivery O2 Flow Rate FiO2 03/13/17 09:50 84 109/51 03/13/17 07:12 98.5 18 98 Room Air 98.5 Intake and Output 03/13/17 07:00 Intake Total 620 ml Output Total 1100 ml Balance -480 ml Intake Oral 620 ml Output Urine Total 1100 ml # Voids 3 Physical Exam Abdomen: Normal bowel sounds, Soft Heart: Regular rate Extremities: No clubbing, No cyanosis, No edema General: Alert, Cooperative HEENT: Atraumatic Lungs: Clear to auscultation MUSCULOSKELETAL: No joint tenderness Neck: Supple COMMENT left testicle is very tender to palpate and larger than right, epididymis also feels tender but exam is difficult due to pain Assessment Assessment Problems (1)Gram negative sepsis from urinary source left acute testicular pain controlled type 2 diabetes Status: Acute Plan Plan of Care testicular/scrotal sono, add levaquin IV, continue IV rocephin, await C&S, await blood cultures, scan post void residual Comment Review of Relevant I have reviewed the following items loy (where applicable) has been applied. Labs Laboratory Tests Test 03/11/17 11:37 03/11/17 16:58 03/11/17 20:59 03/12/17 03:31 Glucose (Fingerstick) 92 mg/dL (70-99) 122 mg/dL (70-99) 187 mg/dL (70-99) White Blood Count 4.9 x10^3/uL (4.0-11.0) Red Blood Count 3.75 x10^6/uL (4.30-5.70) Hemoglobin 10.6 g/dL (13.0-17.5) Hematocrit 31.8 % (39.0-53.0) Mean Corpuscular Volume 85 fL (79-100) Mean Corpuscular Hemoglobin 28 pg (25-35) Mean Corpuscular Hemoglobin Concent 33 g/dL (31-37) Red Cell Distribution Width 15.3 % (11.5-14.5) Platelet Count 211 x10^3/uL (140-400) Neutrophils (%) (Auto) 73 % (31-73) Lymphocytes (%) (Auto) 12 % (24-48) Monocytes (%) (Auto) 12 % (0-9) Eosinophils (%) (Auto) 2 % (0-3) Basophils (%) (Auto) 1 % (0-3) Neutrophils # (Auto) 3.6 x10^3uL (1.8-7.7) Lymphocytes # (Auto) 0.6 x10^3/uL (1.0-4.8) Monocytes # (Auto) 0.6 x10^3/uL (0.0-1.1) Eosinophils # (Auto) 0.1 x10^3/uL (0.0-0.7) Basophils # (Auto) 0.0 x10^3/uL (0.0-0.2) Sodium Level 143 mmol/L (136-145) Potassium Level 3.1 mmol/L (3.5-5.1) Chloride Level 107 mmol/L (98-107) Carbon Dioxide Level 27 mmol/L (21-32) Anion Gap 9 (6-14) Blood Urea Nitrogen 16 mg/dL (8-26) Creatinine 1.0 mg/dL (0.7-1.3) Estimated GFR (Cockcroft-Gault) 73.2 Glucose Level 81 mg/dL (70-99) Calcium Level 8.2 mg/dL (8.5-10.1) Test 03/12/17 07:45 03/12/17 09:18 03/12/17 15:49 03/12/17 20:11 Glucose (Fingerstick) 51 mg/dL (70-99) 124 mg/dL (70-99) 192 mg/dL (70-99) 147 mg/dL (70-99) Test 03/13/17 08:05 03/13/17 09:38 Glucose (Fingerstick) 78 mg/dL (70-99) White Blood Count 6.2 x10^3/uL (4.0-11.0) Red Blood Count 3.94 x10^6/uL (4.30-5.70) Hemoglobin 11.1 g/dL (13.0-17.5) Hematocrit 32.9 % (39.0-53.0) Mean Corpuscular Volume 83 fL (79-100) Mean Corpuscular Hemoglobin 28 pg (25-35) Mean Corpuscular Hemoglobin Concent 34 g/dL (31-37) Red Cell Distribution Width 15.6 % (11.5-14.5) Platelet Count 244 x10^3/uL (140-400) Neutrophils (%) (Auto) 71 % (31-73) Lymphocytes (%) (Auto) 14 % (24-48) Monocytes (%) (Auto) 13 % (0-9) Eosinophils (%) (Auto) 2 % (0-3) Basophils (%) (Auto) 1 % (0-3) Neutrophils # (Auto) 4.4 x10^3uL (1.8-7.7) Lymphocytes # (Auto) 0.9 x10^3/uL (1.0-4.8) Monocytes # (Auto) 0.8 x10^3/uL (0.0-1.1) Eosinophils # (Auto) 0.1 x10^3/uL (0.0-0.7) Basophils # (Auto) 0.0 x10^3/uL (0.0-0.2) Sodium Level 140 mmol/L (136-145) Potassium Level 3.5 mmol/L (3.5-5.1) Chloride Level 103 mmol/L (98-107) Carbon Dioxide Level 27 mmol/L (21-32) Anion Gap 10 (6-14) Blood Urea Nitrogen 14 mg/dL (8-26) Creatinine 1.0 mg/dL (0.7-1.3) Estimated GFR (Cockcroft-Gault) 73.2 Glucose Level 143 mg/dL (70-99) Calcium Level 8.9 mg/dL (8.5-10.1) Laboratory Tests Test 03/12/17 15:49 03/12/17 20:11 03/13/17 08:05 03/13/17 09:38 Glucose (Fingerstick) 192 mg/dL (70-99) 147 mg/dL (70-99) 78 mg/dL (70-99) White Blood Count 6.2 x10^3/uL (4.0-11.0) Red Blood Count 3.94 x10^6/uL (4.30-5.70) Hemoglobin 11.1 g/dL (13.0-17.5) Hematocrit 32.9 % (39.0-53.0) Mean Corpuscular Volume 83 fL (79-100) Mean Corpuscular Hemoglobin 28 pg (25-35) Mean Corpuscular Hemoglobin Concent 34 g/dL (31-37) Red Cell Distribution Width 15.6 % (11.5-14.5) Platelet Count 244 x10^3/uL (140-400) Neutrophils (%) (Auto) 71 % (31-73) Lymphocytes (%) (Auto) 14 % (24-48) Monocytes (%) (Auto) 13 % (0-9) Eosinophils (%) (Auto) 2 % (0-3) Basophils (%) (Auto) 1 % (0-3) Neutrophils # (Auto) 4.4 x10^3uL (1.8-7.7) Lymphocytes # (Auto) 0.9 x10^3/uL (1.0-4.8) Monocytes # (Auto) 0.8 x10^3/uL (0.0-1.1) Eosinophils # (Auto) 0.1 x10^3/uL (0.0-0.7) Basophils # (Auto) 0.0 x10^3/uL (0.0-0.2) Sodium Level 140 mmol/L (136-145) Potassium Level 3.5 mmol/L (3.5-5.1) Chloride Level 103 mmol/L (98-107) Carbon Dioxide Level 27 mmol/L (21-32) Anion Gap 10 (6-14) Blood Urea Nitrogen 14 mg/dL (8-26) Creatinine 1.0 mg/dL (0.7-1.3) Estimated GFR (Cockcroft-Gault) 73.2 Glucose Level 143 mg/dL (70-99) Calcium Level 8.9 mg/dL (8.5-10.1) Microbiology 03/11/17 Urine Culture - Preliminary, Resulted 03/11/17 Urine Culture Result 1 (FERMÍN) - Preliminary, Resulted Medications Current Medications Fentanyl Citrate (Fentanyl 2ml Vial) 25 mcg PRN Q15MIN PRN IV PAIN GREATER THAN 3/10 Last administered on 6/2/17at 07:21; Start 03/11/17 at 07:15; Stop 03/11 at 18:00; Status DC Sodium Chloride 1,000 ml @ 1,000 mls/hr Q1H IV Last administered on 03/11/17 07:21; Start 03/11/17 at 07:30; Stop 03/11/17 at 08:29; Status DC Ondansetron HCl (Zofran) 4 mg 1X ONCE IV Last administered on 03/11/17 07:20; Start 03/11/17 at 07:30; Stop 03/11/17 at 07:31; Status DC Ceftriaxone Sodium 50 ml @ 100 mls/hr 1X ONCE IV Last administered on 08:47; Start 03/11/17 at 08:30; Stop 03/11/17 at 08:59; Status DC Ceftriaxone Sodium 1 gm/ Sodium Chloride 50 ml @ 100 mls/hr Q24H IV Last administered on 03/12/17 09:33; Start 03/12/17 at 09:00 Ondansetron HCl (Zofran) 4 mg PRN Q8HRS PRN IV NAUSEA/VOMITING; Start 03/11/17 at 08:45; Stop 03/12/17 at 08:44; Status DC Sodium Chloride 1,000 ml @ 125 mls/hr Q8H IV Last administered on 03/12/17 04: 26; Start 03/11/17 at 09:00; Stop 03/12/17 at 08:59; Status DC Acetaminophen (Tylenol) 650 mg PRN Q4HRS PRN PO FEVER Last administered on 02:25; Start 03/11/17 at 08:45; Stop 03/12/17 at 08:44; Status DC Insulin Aspart (NovoLOG) 0-5 UNITS TIDWMEALS SQ ; Start 03/11/17 at 12:00 Dextrose (Dextrose 50%-Water Syringe) 12.5 gm PRN Q15MIN PRN IV SEE COMMENTS; Start 03/11/17 at 08:45 Fentanyl Citrate (Fentanyl 2ml Vial) 25 mcg PRN Q15MIN PRN IV PAIN GREATER THAN 3/10; Start 03/11/17 at 08:45; Stop 03/12/17 at 08:44; Status DC Acetaminophen (Tylenol) 1,000 mg 1X ONCE PO Last administered on 03/11/17 09: 01; Start 03/11/17 at 09:00; Stop 03/11/17 at 09:01; Status DC Ceftriaxone Sodium 1 gm/ Sodium Chloride 50 ml @ 100 mls/hr Q24H IV ; Start 03/11/17 at 13:00; Status UNV Insulin Detemir (Levemir) 10 units QHS SQ Last administered on 03/11/17 21:59; Start 03/11/17 at 21:00 Folic Acid (Folic Acid) 1 mg DAILY PO Last administered on 03/13/17 09:49; Start 03/11/17 at 15:00 Lisinopril (Prinivil) 10 mg DAILY PO Last administered on 03/13/17 09:50; Start 03/11/17 at 15:00 Metformin HCl (Glucophage) 1,000 mg BIDWMEALS PO Last administered on 03/13/17 09:50; Start 03/11/17 at 17:00 Fish Oil (Fish Oil) 1,000 mg DAILY PO Last administered on 03/13/17 09:50; Start 03/11/17 at 15:00 Pioglitazone HCl (Actos) 15 mg DAILY PO ; Start 03/11/17 at 15:00; Stop 03/12/17 at 12:28; Status DC Simvastatin (Zocor) 20 mg HS PO Last administered on 03/12/17 20:40; Start 03/11 at 21:00 Tamsulosin HCl (Flomax) 0.4 mg DAILY PO Last administered on 03/13/17 09:51; Start 03/11/17 at 15:00 Glimepiride (Amaryl) 4 mg BIDWMEALS PO Last administered on 03/13/17 09:49; Start 03/11/17 at 17:00 Glucose (Insta-Glucose) 15 gm STK-MED ONCE .ROUTE ; Start 03/12/17 at 07:54; Stop 03/12/17 at 07:55; Status DC Acetaminophen (Tylenol) 650 mg PRN Q6HRS PRN PO PAIN Last administered on 06:38; Start 03/12/17 at 12:15 Polyethylene Glycol (miraLAX PACKET) 17 gm PRN DAILY PRN PO CONSTIPATION Last administered on 03/12/17 12:47; Start 03/12/17 at 12:15 Acetaminophen (Tylenol) 650 mg PRN Q6HRS PRN PO FEVER, Pain Last administered on 03/12/17 12:47; Start 03/12/17 at 12:30 Potassium Chloride (Klor-Con) 20 meq 1X ONCE PO Last administered on 03/12/17 12:47; Start 03/12/17 at 13:00; Stop 03/12/17 at 13:01; Status DC Potassium Chloride (Klor-Con) 10 meq [id number] PO Last administered on 09:50; Start 03/13/17 at 08:00 Metoprolol Succinate (Toprol Xl) 25 mg DAILY PO Last administered on 03/13/17 09:50; Start 03/12/17 at 14:00 Active Scripts Active Reported Fish Oil 1,000 Mg Capsule ([place]-3 Fatty Acids/Fish Oil) 1 Each Capsule 1 Each PO Actos (Pioglitazone Hcl) 15 Mg Tablet 15 Mg PO DAILY Folic Acid 1 Mg Tablet 1 Tab PO DAILY Tamsulosin Hcl 0.4 Mg Cap.er.24h 0.4 Mg PO DAILY Simvastatin 20 Mg Tablet 20 Mg PO HS Lisinopril 10 Mg Tablet 10 Mg PO DAILY Glimepiride 4 Mg Tablet 1 Tab PO BID Metformin Hcl 1,000 Mg Tablet 1,000 Mg PO BIDWMEALS Vitals/I & O Vital Sign - Last 24 Hours 03/12/17 03/12/17 03/12/17 03/12/17 11:09 14:00 15:32 19:00 Temp 100.2 101.1 98.8 100.2 101.1 98.8 Pulse 81 75 75 72 Resp 18 18 18 B/P (MAP) 150/59 (89) 135/53 135/53 (80) 124/64 (84) Pulse Ox 97 97 98 O2 Delivery Room Air Room Air Room Air 03/12/17 03/12/17 03/13/17 03/13/17 20:30 22:35 07:12 09:50 Temp 98.8 98.5 98.8 98.5 Pulse 74 84 84 Resp 18 18 B/P (MAP) 134/62 (86) 109/51 (70) 109/51 Pulse Ox 95 98 O2 Delivery Room Air Room Air Room Air 03/13/17 09:50 Pulse 84 B/P (MAP) 109/51 Intake and Output 03/12/17 03/12/17 03/13/17 15:00 23:00 07:00 Intake Total 620 ml Output Total 450 ml 650 ml Balance -450 ml -30 ml CHRISTOS GREEN MD Mar 13, 2017 11:10
[2017-03-13 11:49] VITALS: BP 141/64
--- NOTE | 2017-03-13 12:08 | RAD ---
Indication: Left testicular swelling. The right testicle measures 5.0 x 3.2 x 1.9 cm and the left testicle measures 4.7 x 3.1 x 2.1 cm. Both testes demonstrate normal homogeneous echotexture. No testicular mass is identified. There is blood flow to both testes. There is a small right hydrocele. There appears to be a slightly complex left hydrocele. The right epididymis is unremarkable. The left epididymal body and tail are heterogeneous and show increased vascularity, suggestive of epididymitis. Impression: 1. No evidence of testicular mass or vascular compromise. 2. Bilateral hydroceles, larger on the left which appears to be slightly complex. 3. Findings consistent with left epididymitis.
[2017-03-13 14:56] VITALS: BP 122/60
[2017-03-13 19:00] VITALS: BP 113/57
[2017-03-13] MEDS: INSULIN DETEMIR 300 UNITS/3 ML INSULN.PEN. SQ SCH (20:41)
[2017-03-13] MEDS: SIMVASTATIN 20 MG TABLET PO SCH (21:20)
[2017-03-13 22:37] VITALS: BP 135/60
[2017-03-14 04:35] LABS: BASO % 1 % (0-3); EOS % 4 % (0-3); HEMATOCRIT 32.1 % (39.0-53.0); HEMOGLOBIN 10.7 g/dL (13.0-17.5); LYMPH % 18 % (24-48); MEAN CORPUSCULAR HEMOGLOBIN 28 pg (25-35); MEAN CORPUSCULAR HGB CONC 34 g/dL (31-37); MEAN CORPUSCULAR VOLUME 84 fL (79-100); MONO % 17 % (0-9); NEUT % 61 % (31-73); PLATELET COUNT 224 x10^3/uL (140-400); RED BLOOD COUNT 3.81 x10^6/uL (4.30-5.70); RED CELL DISTRIBUTION WIDTH 15.8 % (11.5-14.5)
[2017-03-14 07:00] VITALS: BP 142/66
[2017-03-14] MEDS: INSULIN ASPART 300 UNITS/3 ML INSULN.PEN SQ SCH ×2 (08:00→12:00)
[2017-03-14] MEDS: FOLIC ACID 1 MG TABLET. PO SCH (08:45)
[2017-03-14] MEDS: OMEGA-3 FATTY ACIDS/FISH OIL 1,000 MG CAPSULE. PO SCH (08:45)
[2017-03-14] MEDS: METOPROLOL SUCC 24HR ER 25 MG TAB.ER.24H. PO SCH (08:45)
[2017-03-14] MEDS: GLIMEPIRIDE 2 MG TABLET. PO SCH (08:45)
[2017-03-14] MEDS: TAMSULOSIN 0.4 MG CAP.ER.24H. PO SCH (08:46)
[2017-03-14] MEDS: POTASSIUM CHLORIDE 10 MEQ TABLET.ER. PO SCH (08:46)
[2017-03-14] MEDS: LISINOPRIL 10 MG TABLET PO SCH (08:46)
[2017-03-14] MEDS: ACETAMINOPHEN 325 MG TABLET. PO PRN (08:50)
[2017-03-14 10:47] VITALS: BP 121/67
[2017-03-14] MEDS ORDERED: AMOX1TAB61 PO (12:46)
[2017-03-14] MEDS ORDERED: METO25TA9 PO (12:46)
--- NOTE | 2017-03-14 12:51 | DISCH ---
DISCHARGE INSTRUCTIONS Condition on Discharge Condition on Discharge: Stable Activity After Discharge Activity Instructions for Disc: Activity as tolerated Diet after Discharge Diet after Discharge: No Added Sugar, Diabetic No Calorie Level Checks after Discharge Checks after discharge: Check your Temp as needed Contacting the DRWendy after DC Call your doctor for: If your condition worsens Follow-Up Follow up with: Dr. Ledbetter for TURP Follow Up With: Dr. Maravilla within 2 weeks CHRISTOS GREEN MD Mar 14, 2017 12:51
--- NOTE | 2017-03-14 12:59 | PDOC3 ---
Discharge Summary Visit Information Date of Admission: Mar 11, 2017 Date of Discharge: Mar 14, 2017 Final Diagnosis Problems Medical Problems: (1) Pyelonephritis Status: Acute Brief Hospital Course Allergies Allergies Coded Allergies Type Severity Reaction Last Updated Verified No Known Drug Allergies 03/11/17 No Vital Signs Vital Signs Date Time Temp Pulse Resp B/P (MAP) Pulse Ox O2 Delivery O2 Flow Rate FiO2 03/14/17 10:47 98.9 71 18 121/67 (85) 97 Room Air 98.9 Lab Results Laboratory Tests Test 03/12/17 15:49 03/12/17 20:11 03/13/17 08:05 03/13/17 09:38 Glucose (Fingerstick) 192 mg/dL (70-99) 147 mg/dL (70-99) 78 mg/dL (70-99) White Blood Count 6.2 x10^3/uL (4.0-11.0) Red Blood Count 3.94 x10^6/uL (4.30-5.70) Hemoglobin 11.1 g/dL (13.0-17.5) Hematocrit 32.9 % (39.0-53.0) Mean Corpuscular Volume 83 fL (79-100) Mean Corpuscular Hemoglobin 28 pg (25-35) Mean Corpuscular Hemoglobin Concent 34 g/dL (31-37) Red Cell Distribution Width 15.6 % (11.5-14.5) Platelet Count 244 x10^3/uL (140-400) Neutrophils (%) (Auto) 71 % (31-73) Lymphocytes (%) (Auto) 14 % (24-48) Monocytes (%) (Auto) 13 % (0-9) Eosinophils (%) (Auto) 2 % (0-3) Basophils (%) (Auto) 1 % (0-3) Neutrophils # (Auto) 4.4 x10^3uL (1.8-7.7) Lymphocytes # (Auto) 0.9 x10^3/uL (1.0-4.8) Monocytes # (Auto) 0.8 x10^3/uL (0.0-1.1) Eosinophils # (Auto) 0.1 x10^3/uL (0.0-0.7) Basophils # (Auto) 0.0 x10^3/uL (0.0-0.2) Sodium Level 140 mmol/L (136-145) Potassium Level 3.5 mmol/L (3.5-5.1) Chloride Level 103 mmol/L (98-107) Carbon Dioxide Level 27 mmol/L (21-32) Anion Gap 10 (6-14) Blood Urea Nitrogen 14 mg/dL (8-26) Creatinine 1.0 mg/dL (0.7-1.3) Estimated GFR (Cockcroft-Gault) 73.2 Glucose Level 143 mg/dL (70-99) Calcium Level 8.9 mg/dL (8.5-10.1) Test 03/13/17 12:20 03/13/17 16:58 03/13/17 20:32 03/14/17 03:55 Glucose (Fingerstick) 88 mg/dL (70-99) 120 mg/dL (70-99) 102 mg/dL (70-99) White Blood Count 6.0 x10^3/uL (4.0-11.0) Red Blood Count 3.81 x10^6/uL (4.30-5.70) Hemoglobin 10.7 g/dL (13.0-17.5) Hematocrit 32.1 % (39.0-53.0) Mean Corpuscular Volume 84 fL (79-100) Mean Corpuscular Hemoglobin 28 pg (25-35) Mean Corpuscular Hemoglobin Concent 34 g/dL (31-37) Red Cell Distribution Width 15.8 % (11.5-14.5) Platelet Count 224 x10^3/uL (140-400) Neutrophils (%) (Auto) 61 % (31-73) Lymphocytes (%) (Auto) 18 % (24-48) Monocytes (%) (Auto) 17 % (0-9) Eosinophils (%) (Auto) 4 % (0-3) Basophils (%) (Auto) 1 % (0-3) Neutrophils # (Auto) 3.6 x10^3uL (1.8-7.7) Lymphocytes # (Auto) 1.0 x10^3/uL (1.0-4.8) Monocytes # (Auto) 1.0 x10^3/uL (0.0-1.1) Eosinophils # (Auto) 0.2 x10^3/uL (0.0-0.7) Basophils # (Auto) 0.0 x10^3/uL (0.0-0.2) Test 03/14/17 07:02 03/14/17 11:39 Glucose (Fingerstick) 75 mg/dL (70-99) 103 mg/dL (70-99) Laboratory Tests Test 03/13/17 16:58 03/13/17 20:32 03/14/17 03:55 03/14/17 07:02 Glucose (Fingerstick) 120 mg/dL (70-99) 102 mg/dL (70-99) 75 mg/dL (70-99) White Blood Count 6.0 x10^3/uL (4.0-11.0) Red Blood Count 3.81 x10^6/uL (4.30-5.70) Hemoglobin 10.7 g/dL (13.0-17.5) Hematocrit 32.1 % (39.0-53.0) Mean Corpuscular Volume 84 fL (79-100) Mean Corpuscular Hemoglobin 28 pg (25-35) Mean Corpuscular Hemoglobin Concent 34 g/dL (31-37) Red Cell Distribution Width 15.8 % (11.5-14.5) Platelet Count 224 x10^3/uL (140-400) Neutrophils (%) (Auto) 61 % (31-73) Lymphocytes (%) (Auto) 18 % (24-48) Monocytes (%) (Auto) 17 % (0-9) Eosinophils (%) (Auto) 4 % (0-3) Basophils (%) (Auto) 1 % (0-3) Neutrophils # (Auto) 3.6 x10^3uL (1.8-7.7) Lymphocytes # (Auto) 1.0 x10^3/uL (1.0-4.8) Monocytes # (Auto) 1.0 x10^3/uL (0.0-1.1) Eosinophils # (Auto) 0.2 x10^3/uL (0.0-0.7) Basophils # (Auto) 0.0 x10^3/uL (0.0-0.2) Test 03/14/17 11:39 Glucose (Fingerstick) 103 mg/dL (70-99) Brief Hospital Course Mr. Montejo is a 71 old who presented with inability to empty his bladder with pain and had a fever and UA consistent with infection. Imaging revealed a thickened bladder wall with a diverticulum and BPH and there was concern for early Pyelonephritis but it did not show on the study. He was started on IV rocephin which his infection was found to be sensitive to, his blood culture is pending. He developed scrotal pain that was found to be from epididymitis and he was also noted to have bilateral hydrocele. His diabetes was controlled and he even had an episode of hypoglycemia, He will be transitioned to augmentin 875 mg 1 po bid #14 and f/u in offfice withing 2 weeks and f/u with Dr. Ledbetter regarding TURP Discharge Information Condition at Discharge: Improved, Stable Follow Up: Weeks (as above) Disposition/Orders: D/C to Home Scheduled Folic Acid (Folic Acid), 1 TAB PO DAILY, (Reported) Glimepiride (Glimepiride), 1 TAB PO BID, (Reported) Lisinopril (Lisinopril), 10 MG PO DAILY, (Reported) Metformin Hcl (Metformin Hcl), 1,000 MG PO BIDWMEALS, (Reported) Pioglitazone Hcl (Actos), 15 MG PO DAILY, (Reported) Simvastatin (Simvastatin), 20 MG PO HS, (Reported) Tamsulosin Hcl (Tamsulosin Hcl), 0.4 MG PO DAILY, (Reported) Miscellaneous Medications Dawson-3 Fatty Acids/Fish Oil (Fish Oil 1,000 Mg Capsule), 1 EACH PO, (Reported) CHRISTOS GREEN MD Mar 14, 2017 12:58
== END 2017-03-14 14:35 | disposition home or self-care (01) | DRG 872 ==
LOC: ER 06:38 → 5 SOUTH 08:17
PROVIDERS: ADMIT Family Medicine; ATTEND Family Medicine
DX: A41.50 Gram-negative sepsis, unspecified (principal); N12 Tubulo-interstitial nephritis, not specified as acute or chronic; E87.1 Hypo-osmolality and hyponatremia; I25.10 Atherosclerotic heart disease of native coronary artery without angina pectoris; E11.649 Type 2 diabetes mellitus with hypoglycemia without coma; E78.5 Hyperlipidemia, unspecified; E87.6 Hypokalemia; I10 Essential (primary) hypertension; N30.91 Cystitis, unspecified with hematuria; G89.29 Other chronic pain; M54.9 Dorsalgia, unspecified; N40.1 Benign prostatic hyperplasia with lower urinary tract symptoms; N43.3 Hydrocele, unspecified; N45.1 Epididymitis; B96.20 Unspecified Escherichia coli [E. coli] as the cause of diseases classified elsewhere; R33.8 Other retention of urine; Z79.4 Long term (current) use of insulin; Z83.3 Family history of diabetes mellitus; Z87.891 Personal history of nicotine dependence; Z90.49 Acquired absence of other specified parts of digestive tract; Z95.1 Presence of aortocoronary bypass graft; Z88.8 Allergy status to other drugs, medicaments and biological substances; Z79.899 Other long term (current) drug therapy; Z79.84 Long term (current) use of oral hypoglycemic drugs
CPT/HCPCS: 36415; 74176; 76870; 80048; 80053; 81001; 82962; 83036; 84484; 85027; 87086; 87186; 93005; 96361; 96365; 96375; J0690; J0696; J1815; J1956; J2405; J3010; J7030; 99285-25